=== PATIENT | male | born 1995 | race African-American/Black ===

== ENCOUNTER 2017-02-10 21:18 | Emergency (ER) | payer SELFPAY ==
[~2017-02-10] VITALS: Ht 180.3 cm; Wt 72.7 kg
[2017-02-10 22:46] VITALS: BP 119/74
== END 2017-02-10 23:31 | disposition home or self-care (01) ==
LOC: EMS 21:21
DX: S30.0XXA Contusion of lower back and pelvis, initial encounter (principal); F17.210 Nicotine dependence, cigarettes, uncomplicated; Y35.811A Legal intervention involving manhandling, law enforcement official injured, initial encounter; Y93.89 Activity, other specified; Y92.89 Other specified places as the place of occurrence of the external cause; Y99.8 Other external cause status
CPT/HCPCS: 72100; 99284